=== PATIENT | male | born 1945 | race Caucasian/White ===

== ENCOUNTER 2021-12-25 07:45 | Observation (INO) | payer MEDICARE ==
[~2021-12-25] VITALS: Ht 182.9 cm; Wt 127.0 kg
[2021-12-25] MEDS ORDERED: SODIUM CHLORIDE 0.9% 1000ML 1,000 ML IV STA (07:50)
[2021-12-25 08:15] LABS: BASOPHILS # (AUTO) 0.1 (0.0-0.1); BASOPHILS % 0.6 % (0.0-1.0); EOSINOPHILS # (AUTO) 0.1 (0.0-0.4); EOSINOPHILS % 0.8 % (0.0-6.0); HEMATOCRIT 43.4 % (38.2-49.6); HEMOGLOBIN 15.2 g/dL (14.0-18.0); LYMPHOCYTES # (AUTO) 1.4 (1.0-3.2); MEAN CORPUSCULAR HEMOGLOBIN 32.5 pg (28-32); MEAN CORPUSCULAR VOLUME 92.9 fL (81-99); MONOCYTES # (AUTO) 0.8 (0.2-0.8); MONOCYTES % 9.1 % (4.4-11.3); NEUTROPHILS % 71.9 % (38.7-80.0); PLATELET COUNT 237 x10e3/uL (140-360); RED BLOOD COUNT 4.67 x10e6/uL (4.3-5.7)
[2021-12-25] MEDS ORDERED: TETANUS/DIPHTHERIA TOX ADULT 0.5 ML SYR IM ONE (08:15)
[2021-12-25 08:31] LABS: INR 0.95; PARTIAL THROMBOPLASTIN TIME 26.8 seconds (23.8-35.5); PROTHROMBIN TIME 13.6 seconds (11.9-14.5)
[2021-12-25 08:42] LABS: ALBUMIN 3.8 g/dL (3.5-5.0); ALBUMIN/GLOBULIN RATIO 1.1 (0.8-2.0); CALCIUM 9.4 mg/dL (8.4-10.2); CREATININE, SERUM 1.13 mg/dL (0.72-1.25); MAGNESIUM 2.1 MG/DL (1.3-2.1)
[2021-12-25 08:49] LABS: CREATINE KINASE MB 1.9 ng/mL (0-5.0)
[2021-12-25] MEDS ORDERED: ONDANSETRON HCL INJ 2MG/ML 2ML 2 MG/ML VIAL IV PRN (09:15)
[2021-12-25] MEDS ORDERED: DOCUSATE SODIUM 100 MG CAP PO PRN (09:30)
[2021-12-25 10:00] VITALS: BP 130/75
[2021-12-25 10:45] LABS: CLARITY,URINE CLEAR (CLEAR); COLOR,URINE YELLOW (YELLOW); KETONES,URINE NEGATIVE (NEGATIVE); LEUKOCYTE ESTERASE ,URINE NEGATIVE (NEGATIVE); NITRITE,URINE NEGATIVE (NEGATIVE); PROTEIN,URINE DIPSTICK NEGATIVE (NEGATIVE); URINE UROBILINOGEN 0.2 mg/dL (0.2 - 1)
[2021-12-25 11:09] LABS: BACTERIA,URINE FEW /HPF; EPITHELIAL CELLS,URINE RARE /LPF; RBC,URINE 0-5 /HPF (0-5); WBC,URINE (MAN) 0-5 /HPF (0-5)
[2021-12-25 12:05] VITALS: BP 153/86
[2021-12-25 14:07] LABS: CREATINE KINASE MB 2.8 ng/mL (0-5.0)
[2021-12-25] MEDS ORDERED: ENOXAPARIN SOD INJ 40 MG/0.4 ML SYR SC SCH (17:00)
[2021-12-25] MEDS ORDERED: IOPAMIDOL 370 MG/ML 200 ML INFUS..BTL INJ ONE (19:38)
[2021-12-25] MEDS ORDERED: SODIUM CHLORIDE 0.9% 50ML 50 ML ONE (19:38)
[2021-12-25 19:56] VITALS: BP 163/72
[2021-12-25 20:11] VITALS: BP 163/72
[2021-12-25] MEDS: ACETAMINOPHEN 325 MG TAB PO PRN (21:40)
[2021-12-26 00:24] VITALS: BP 149/62
[2021-12-26 05:03] LABS: BASOPHILS # (AUTO) 0.1 (0.0-0.1); BASOPHILS % 0.6 % (0.0-1.0); EOSINOPHILS # (AUTO) 0.1 (0.0-0.4); EOSINOPHILS % 1.1 % (0.0-6.0); HEMATOCRIT 42.1 % (38.2-49.6); HEMOGLOBIN 14.7 g/dL (14.0-18.0); LYMPHOCYTES # (AUTO) 1.7 (1.0-3.2); LYMPHOCYTES % 18.9 % (18.0-39.1); MEAN CORPUSCULAR HEMOGLOBIN 32.7 pg (28-32); MEAN CORPUSCULAR HGB CONC 34.9 g/dL (31-35); MEAN CORPUSCULAR VOLUME 93.8 fL (81-99); MONOCYTES # (AUTO) 1.1 (0.2-0.8); MONOCYTES % 12.7 % (4.4-11.3); NEUTROPHILS # (AUTO) 5.9 (2.1-6.9); NEUTROPHILS % 66.2 % (38.7-80.0); PLATELET COUNT 229 x10e3/uL (140-360); RED BLOOD COUNT 4.49 x10e6/uL (4.3-5.7)
[2021-12-26 05:22] VITALS: BP 153/66
[2021-12-26 05:24] LABS: ALBUMIN 3.6 g/dL (3.5-5.0); ALBUMIN/GLOBULIN RATIO 0.9 (0.8-2.0); ANION GAP 11.8 mmol/L (8-16); CALCIUM 9.1 mg/dL (8.4-10.2); CHOL/HDL RATIO 3.5 (3.9-4.7); CREATININE, SERUM 1.06 mg/dL (0.72-1.25); POTASSIUM 3.8 mmol/L (3.5-5.1)
[2021-12-26] MEDS: ACETAMINOPHEN 325 MG TAB PO PRN (06:08)
[2021-12-26 06:30] LABS: CREATINE KINASE MB 1.6 ng/mL (0-5.0)
[2021-12-26 09:00] VITALS: BP 156/71
[2021-12-26] MEDS ORDERED: ASPIRIN 81 MG ENTERIC COATED PO SCH (09:00)
[2021-12-26] MEDS ORDERED: ATORVASTATIN CA20 MG PO (09:24)
[2021-12-26] MEDS ORDERED: ASPIRIN EC81 MG PO (09:24)
[2021-12-26] MEDS ORDERED: METFORMIN HCL500 MG PO (09:24)
[2021-12-26] MEDS ORDERED: ONDANSETRON HCL 4 MG ORAL DISINTEGRATING TAB PO PRN (09:30)
== END 2021-12-26 11:47 | disposition home or self-care (01) ==
LOC: ER 08:10 → INTOOBSV 09:08 → ERHOLD 09:08 → MED/SURG2 10:02
PROVIDERS: ADMIT Internal Medicine; ATTEND Internal Medicine
DX: R55 Syncope and collapse (principal); E78.1 Pure hyperglyceridemia; Z20.822 Contact with and (suspected) exposure to COVID-19; E66.01 Morbid (severe) obesity due to excess calories; Z68.38 Body mass index [BMI] 38.0-38.9, adult
CPT/HCPCS: 36415 ×2; 70450; 71045; 71260; 72125; 80053 ×2; 80061; 81001; 82550 ×2; 82553 ×2; 82948; 83036; 83735; 83880; 84484 ×2; 85025 ×2; 85610; 85730; 87086; 90714; 93005; 93306; 93880; 97161; 97530; 99284; G0378 ×2; J1650; J7030; Q9967; U0002; 90962